=== PATIENT | female | born 1980 | race Caucasian/White ===

== ENCOUNTER 2018-11-16 10:03 | Emergency (ER) | payer OTHER ==
[~2018-11-16] VITALS: Ht 162.6 cm; Wt 59.4 kg
[~2018-11-16 10:03] MED LIST: DOCU-144 PO; HYDR25CA98 PO; LORA10CA PO; POLY17PO6 PO
[2018-11-16 10:08] VITALS: BP 122/72; PULSE 69; RESP 18; Ht 162.6 cm; Wt 59.4 kg
[2018-11-16] MEDS ORDERED: LIDOCAINE 1% (MPF) 5 ML VIAL INJ ONE (11:00)
[2018-11-16] MEDS ORDERED: CEPH-443 PO (11:56)
[2018-11-16] MEDS ORDERED: IBUP800T48 PO (11:56)
[2018-11-16] MEDS ORDERED: DIPHTH/TET/ACEL PERTUSS (ADULT) 0.5 ML VIAL IM* ONE (12:00)
--- NOTE | 2018-11-16 12:46 | ERD ---
ER Documentation Chief Complaint Chief Complaint RT THUMB LAC. CUT WITH CERAMIC MUG HPI 38-year-old female presenting with a laceration to the right base of the thumb. Patient dropped her coffee mug in the ceramic with a mild cut her hand. She is right-hand dominant. Does not recall her last tetanus shot. Denies medical problems. Surgical history rhinoplasty. Social history denies. NKDA ROS All systems reviewed and are negative except as per history of present illness. Medications Home Meds Active Scripts Ibuprofen* (Motrin*) 800 Mg Tab, 800 MG PO Q6, #30 TAB Prov:AMADA LOCO PA-C 11/16/18 Cephalexin* (Keflex*) 500 Mg Capsule, 500 MG PO QID for 7 Days, CAP Prov:AMADA LOCO PA-C 11/16/18 Polyethylene Glycol* (Miralax*) 17 Gm Powd.pack, 17 GM PO DAILY, #7 Prov:MASOOD THURSTON SIEBEL ARCHITECT 07/05/15 Docusate Sodium* (Colace*) 100 Mg Capsule, 100 MG PO TID, #60 Prov:MASOOD THURSTON SIEBEL ARCHITECT 07/05/15 Reported Medications Loratadine* (Claritin*) 10 Mg Capsule, 10 MG PO DAILY, CAP 12/29/14 Hydroxyzine Pamoate* (Hydroxyzine Pamoate*) 25 Mg Capsule, 25 MG PO HS PRN for SLEEP, CAP 12/29/14 Allergies Allergies: Coded Allergies: No Known Allergy (Verified Allergy, Unknown, 11/29/08) PMhx/Soc History of Surgery: Yes (D&C, nasal surgery) Anesthesia Reaction: No Hx Neurological Disorder: No Hx Respiratory Disorders: No Hx Cardiac Disorders: No Hx Psychiatric Problems: Yes (insomnia) Hx Miscellaneous Medical Probl: No Hx Alcohol Use: No Hx Substance Use: No Hx Tobacco Use: No Smoking Status: Never smoker FmHx Family History: No diabetes, No coronary disease, No other Physical Exam Vitals Vital Signs Date Temp Pulse Resp B/P (MAP) Pulse Ox O2 O2 Flow FiO2 Time Delivery Rate 11/16/18 97.3 69 18 122/72 99 10:08 (89) Physical Exam GENERAL: The patient is well-appearing, well-nourished, in no acute distress CHEST: Clear to auscultation bilaterally. There are no rales, wheezes or rhonchi. HEART: Regular rate and rhythm. No murmurs, clicks, rubs or gallops. EXTREMITIES: Equal pulses bilaterally. There is no peripheral clubbing, cyanosis or edema. No focal swelling or erythema. Full range of motion. NEUROLOGIC: Motor strength in all 4 extremities with 5 out of 5 strength. Sensation grossly intact. SKIN: 1 cm linear laceration noted to the base of the right thumb on the volar aspect. Laceration over the thenar muscle. No active bleeding. No foreign bodies. Results 24 hrs Current Medications Medications Dose Sig/Kristin Start Time Status Last (Trade) Ordered Route PRN Stop Time Admin Dose Reason Admin Lidocaine 5 ml ONCE ONCE 11/16/18 DC (Xylocaine INJ 11:00 1% (Mpf)) 11/16/18 11:01 Diphtheria/ 0.5 ml ONCE ONCE 11/16/18 DC 11/16/18 Tetanus/Acell IM* 12:00 12:09 Pertussis 11/16/18 12:01 (Adacel) Procedures/MDM Laceration Repair by me: Anesthesia: 1% lidocaine locally Location: Right thumb Tendon/Joint/Nerves: No injury Foreign body: None detected after copious irrigation and exploration Technique: 3 4.0 N Simple Interrupted Sutures Complexity: No subcutaneous sutures/mucosal repair/edge excision Post Closure Length: 1 cm Patient's bleeding was easily controlled in the department and there is no indication of anemia. No evidence of compartment syndrome, neurologic injury, vascular injury, open joint, tendon laceration, or foreign body. Patient is appropriate for outpatient follow up. 48 hour wound check. Scar minimization instructions given. ER Course: Tetanus given in ED MDM: 38-year-old female presenting with laceration to right thumb. She has normal range of motion of the thumb and I have low suspicion for tendon or ligament injury. I have low suspicion for neuro deficit. Patient had sutures placed in the emergency room. I have low suspicion for retained foreign body. Patient is discharged with strict ER precautions and told to follow-up with primary care within 1-2 days for close evaluation. Patient is told if symptoms change or worsen to return immediately to the ER. All questions answered at dis charge Departure Diagnosis: Primary Impression: Laceration Condition: Stable Patient Instructions: Laceration, Hand Referrals: [facility] (PCP) Additional Instructions: FOLLOW UP WITH YOUR PRIMARY CARE PHYSICIAN TOMORROW.Return to this facility if you are not improving as expected. AMADA LOCO PA-C Nov 16, 2018 12:46
== END 2018-11-16 12:16 | disposition home or self-care (01) ==
LOC: FTE 10:03
DX: S61.011A Laceration without foreign body of right thumb without damage to nail, initial encounter (principal); W26.8XXA Contact with other sharp object(s), not elsewhere classified, initial encounter; Y92.9 Unspecified place or not applicable
CPT/HCPCS: 12001; 90471; 90715; Z7502; Z7610

== ENCOUNTER 2018-11-18 09:24 | Emergency (ER) | payer OTHER ==
[~2018-11-18] VITALS: Wt 59.0 kg
[~2018-11-18 09:24] MED LIST changes: +CEPH-443 PO; +IBUP800T48 PO
[2018-11-18 09:27] VITALS: BP 111/54; PULSE 63; RESP 18
--- NOTE | 2018-11-18 09:52 | ERD ---
ER Documentation Chief Complaint Chief Complaint here for 2 day wound check on right palm sutures. HPI 38-year-old female who presents ED for wound check. Patient had sutures placed 2 days ago on right palm. Patient denies fever, chills, pain, tingling, numbness. Denies purulent drainage coming from wound, redness, swelling. ROS All systems reviewed and are negative except as per history of present illness. Medications Home Meds Active Scripts Ibuprofen* (Motrin*) 800 Mg Tab, 800 MG PO Q6, #30 TAB Prov:AMADA LOCO PA-C 11/16/18 Cephalexin* (Keflex*) 500 Mg Capsule, 500 MG PO QID for 7 Days, CAP Prov:AMADA LOCO PA-C 11/16/18 Polyethylene Glycol* (Miralax*) 17 Gm Powd.pack, 17 GM PO DAILY, #7 Prov:MASOOD THURSTON UNIT RECEPTIONIST 07/05/15 Docusate Sodium* (Colace*) 100 Mg Capsule, 100 MG PO TID, #60 Prov:MASOOD THURSTON UNIT RECEPTIONIST 07/05/15 Reported Medications Loratadine* (Claritin*) 10 Mg Capsule, 10 MG PO DAILY, CAP 12/29/14 Hydroxyzine Pamoate* (Hydroxyzine Pamoate*) 25 Mg Capsule, 25 MG PO HS PRN for SLEEP, CAP 12/29/14 Allergies Allergies: Coded Allergies: No Known Allergy (Verified Allergy, Unknown, 11/29/08) PMhx/Soc History of Surgery: Yes (D&C, nasal surgery) Anesthesia Reaction: No Hx Neurological Disorder: No Hx Respiratory Disorders: No Hx Cardiac Disorders: No Hx Psychiatric Problems: Yes (insomnia) Hx Miscellaneous Medical Probl: No Hx Alcohol Use: No Hx Substance Use: No Hx Tobacco Use: No FmHx Family History: No diabetes Physical Exam Vitals Vital Signs Date Temp Pulse Resp B/P (MAP) Pulse Ox O2 O2 Flow FiO2 Time Delivery Rate 11/18/18 97.9 63 18 111/54 99 09:27 (73) Physical Exam Const: No acute distress Head: Atraumatic Eyes: Normal Conjunctiva ENT: Normal External Ears, Nose and Mouth. Neck: Full range of motion. No meningismus. Resp: Clear to auscultation bilaterally Cardio: Regular rate and rhythm, no murmurs Skin: There are [address] along patient's right lateral palm, with no redness, swelling, tenderness to palpation or purulent drainage, no lymphatic streaking no petechiae or rashes Psych: Normal Mood and Affect Procedures/MDM ER COURSE: The patient was stable throughout ED course. I kept the patient and/or family informed of laboratory and diagnostic imaging results throughout the emergency room course. The patient was promptly evaluated and a treatment plan was devised based on H&P and other data. This plan was discussed with the patient who agreed and had no further questions or concerns prior to discharge. MEDICAL DECISION MAKIN-year-old female presents ED for wound check. The wound is clean, dry and intact with no evidence of infection. Patient has good wound closure and good wound approximation. There is no surrounding erythema, warmth, tenderness or lymphatic streaking. Low suspicion for deep space infection, compartment syndrome, cellulitis, neurovascular injury, tendon injury. Patient's vitals are stable and she can be managed with close outpatient follow-up. Advised patient follow-up with primary care in the next 48 hours. Advised to return to ED with any worsening symptoms. DISPOSITION PLAN: We discussed follow up with the patient's primary care doctor within 24 to 48 hours. Patient counseled regarding my diagnostic impression and care plan. Prior to discharge all questions answered. Pt agrees with treatment plan and understands strict return precautions. Precautionary instructions provided including instructions to return to the ER if not improving or for any worsening or changing symptoms or concerns. ExitCare instructions provided. Prior to discharge, patients vital signs have been reviewed SPECIALIST FOLLOW UP RECOMMENDED: None Patient has been advised to follow up with primary care in 1-2 days. Disclaimer: Inadvertent spelling and grammatical errors are likely due to EHR/dictation software use and do not reflect on the overall quality of patient care. Also, please note that the electronic time recorded on this note does not necessarily reflect the actual time of the patient encounter. Departure Diagnosis: Primary Impression: Encounter for wound re-check Condition: Stable Patient Instructions: Wound Check, Lac F/U (No Infection) Referrals: [facility] YOU HAVE RECEIVED A MEDICAL SCREENING EXAM AND THE RESULTS INDICATE THAT YOU DO NOT HAVE A CONDITION THAT REQUIRES URGENT TREATMENT IN THE EMERGENCY DEPARTMENT. FURTHER EVALUATION AND TREATMENT OF YOUR CONDITION CAN WAIT UNTIL YOU ARE SEEN IN YOUR DOCTORS OFFICE WITHIN THE NEXT 1-2 DAYS. IT IS YOUR RESPONSIBILITY TO MAKE AN APPOINTMENT FOR FOLOW-UP CARE. IF YOU HAVE A PRIMARY DOCTOR --you should call your primary doctor and schedule an appointment IF YOU DO NOT HAVE A PRIMARY DOCTOR YOU CAN CALL OUR PHYSICIAN REFERRAL HOTLINE AT IF YOU CAN NOT AFFORD TO SEE A PHYSICIAN YOU CAN CHOSE FROM THE FOLLOWING [facility] [address] [place] [address] [facility] [address] [facility] [address] [facility] [address] [facility]. [facility] [address] Additional Instructions: Patient advised to return to the ED immediately for new or worsening symptoms. Patient advised to follow up with primary care provider in the next 24-48 hours. Patient verbalized understanding and agrees with treatment plan and course of action. If patient has no primary care they may follow up with one of the [facility] listed on the following page or one of the options listed below [facility] + [facility] [address] [place] [id number] or [facility] [address] [place] [address] or [facility] [address] [place] [address] MOY GILL PA-C Nov 18, 2018 09:52
== END 2018-11-18 10:24 | disposition home or self-care (01) ==
LOC: FTE 09:24
DX: Z48.01 Encounter for change or removal of surgical wound dressing (principal)
CPT/HCPCS: 99281

== ENCOUNTER 2018-11-23 09:47 | Emergency (ER) | payer OTHER ==
[~2018-11-23] VITALS: Ht 162.6 cm; Wt 59.0 kg
[2018-11-23 09:56] VITALS: BP 117/63; PULSE 80; RESP 16; Ht 162.6 cm; Wt 59.0 kg
--- NOTE | 2018-11-23 11:00 | ERD ---
ER Documentation Chief Complaint Chief Complaint ENCOUNTER FOR SUTURE REMOVAL ON RT HAND HPI Patient is a 30-year-old female presents the ER for suture removal. Patient cut her right hand on 11-16-18. Patient denies any redness or swelling. Patient denies fevers or chills. Patient has normal range of motion of all digits. ROS All systems reviewed and are negative except as per history of present illness. Medications Home Meds Active Scripts Ibuprofen* (Motrin*) 800 Mg Tab, 800 MG PO Q6, #30 TAB Prov:AMADA LOCO PA-C 11/16/18 Cephalexin* (Keflex*) 500 Mg Capsule, 500 MG PO QID for 7 Days, CAP Prov:AMADA LOCO PA-C 11/16/18 Polyethylene Glycol* (Miralax*) 17 Gm Powd.pack, 17 GM PO DAILY, #7 Prov:MASOOD THURSTON [facility] DIRECTOR 07/05/15 Docusate Sodium* (Colace*) 100 Mg Capsule, 100 MG PO TID, #60 Prov:MASOOD THURSTON SENIOR C[facility] DIRECTOR 07/05/15 Reported Medications Loratadine* (Claritin*) 10 Mg Capsule, 10 MG PO DAILY, CAP 12/29/14 Hydroxyzine Pamoate* (Hydroxyzine Pamoate*) 25 Mg Capsule, 25 MG PO HS PRN for SLEEP, CAP 12/29/14 Allergies Allergies: Coded Allergies: No Known Allergy (Verified Allergy, Unknown, 11/29/08) PMhx/Soc History of Surgery: Yes (D&C, nasal surgery) Anesthesia Reaction: No Hx Neurological Disorder: No Hx Respiratory Disorders: No Hx Cardiac Disorders: No Hx Psychiatric Problems: Yes (insomnia) Hx Miscellaneous Medical Probl: No Hx Alcohol Use: No Hx Substance Use: No Hx Tobacco Use: No Smoking Status: Never smoker FmHx Family History: No diabetes Physical Exam Vitals Vital Signs Date Temp Pulse Resp B/P (MAP) Pulse Ox O2 O2 Flow FiO2 Time Delivery Rate 11/23/18 97.2 80 16 117/63 100 09:56 (81) Physical Exam GENERAL: Well-developed, well-nourished female. Appears in no acute distress. HEAD: Normocephalic, atraumatic. EYES: Pupils are equally reactive bilaterally. EOMs grossly intact. No conjunctival erythema. EXTREMITIES: Equal pulses bilaterally. No peripheral clubbing, cyanosis or edema. No unilateral leg swelling. NEUROLOGIC: Alert and oriented. Moving all four extremities without any difficulty. Normal speech. Steady gait. SKIN: 3 sutures noted over the right thenar aspect. No signs of infection. . Normal range of motion of all digits. Procedures/MDM Suture Removal by me: 3 Sutures removed with tweezers and scissors without incident. Wound shows no evidence of infection, foreign body, neurologic injury, vascular injury, open joint or tendon laceration. Patient to follow up PRN. Departure Diagnosis: Primary Impression: Visit for suture removal Patient Instructions: Suture Removal, No Complication Referrals: [facility] YOU HAVE RECEIVED A MEDICAL SCREENING EXAM AND THE RESULTS INDICATE THAT YOU DO NOT HAVE A CONDITION THAT REQUIRES URGENT TREATMENT IN THE EMERGENCY DEPARTMENT. FURTHER EVALUATION AND TREATMENT OF YOUR CONDITION CAN WAIT UNTIL YOU ARE SEEN IN YOUR DOCTORS OFFICE WITHIN THE NEXT 1-2 DAYS. IT IS YOUR RESPONSIBILITY TO MAKE AN APPOINTMENT FOR FOLOW-UP CARE. IF YOU HAVE A PRIMARY DOCTOR --you should call your primary doctor and schedule an appointment IF YOU DO NOT HAVE A PRIMARY DOCTOR YOU CAN CALL OUR PHYSICIAN REFERRAL HOTLINE AT IF YOU CAN NOT AFFORD TO SEE A PHYSICIAN YOU CAN CHOSE FROM THE FOLLOWING [facility] [address] [facility]. [facility] [address] [facility] [address] [facility] [facility] [address] [facility] [facility] [address] [facility]. [facility]. [address] [facility]. [facility] YOU HAVE RECEIVED A MEDICAL SCREENING EXAM AND THE RESULTS INDICATE THAT YOU DO NOT HAVE A CONDITION THAT REQUIRES URGENT TREATMENT IN THE EMERGENCY DEPARTMENT. FURTHER EVALUATION AND TREATMENT OF YOUR CONDITION CAN WAIT UNTIL YOU ARE SEEN IN YOUR DOCTORS OFFICE WITHIN THE NEXT 1-2 DAYS. IT IS YOUR RESPONSIBILITY TO MAKE AN APPOINTMENT FOR FOLOW-UP CARE. IF YOU HAVE A PRIMARY DOCTOR --you should call your primary doctor and schedule and appointment IF YOU DO NOT HAVE A PRIMARY DOCTOR YOU CAN CALL OUR PHYSICIAN REFERRAL HOTLINE AT . IF YOU CAN NOT AFFORD TO SEE A PHYSICIAN YOU CAN CHOSE FROM THE FOLLOWING [facility]: [facility] [address] [place] [address] [facility] [address] [place] [address] [facility] [address] [place] [address] Additional Instructions: Call your primary care doctor TOMORROW for an appointment during the next 1-2 days.See the doctor sooner or return here if your condition worsens before your appointment time. LILIANE WALKER PA-C Nov 23, 2018 11:00
== END 2018-11-23 11:26 | disposition home or self-care (01) ==
LOC: FTE 09:47
DX: Z48.02 Encounter for removal of sutures (principal)
CPT/HCPCS: 99281